=== PATIENT | female | born 1960 | race Two or more races ===

== ENCOUNTER 2017-12-23 05:52 | Day surgery (SDC) | payer BC ==
--- NOTE | 2017-12-22 17:12 | Pre-Procedure Note/Attestation ---
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 Attestation I attest that I discussed the nature of the procedure; its benefits; risks and complications; and alternatives (and the risks and benefits of such alternatives ), prior to the procedure, with the patient (or the patient's legal dental sales representative). I attest that, if there was a reasonable possibility of needing a blood transfusion, the patient (or the patient's legal dental sales representative) was given the [facility] standardized written summary, pursuant to the Renny Jessup Blood Safety Act ([place] Health and Safety Code # 1645, as amended). I attest that I re-evaluated the patient just prior to the surgery and that there has been no change in the patient's H&P, done by pts PMD-I will sign in the EMR. Cody Jones MD Dec 22, 2017 17:12
--- NOTE | 2017-12-22 17:13 | Brief Operative Note ---
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 Procedure: Excision of posterior left neck tumor Post-op Diagnosis: same as pre-op Surgeon: Cody Jones Twister Tender: none Additional Surgeons: none Anesthesiologist: Janee Anesthesia: MAC Specimen: yes Complications: none Condition: stable Fluids: D5LR Estimated Blood Loss: volume - 10 cc Drains: antonio Packing: none Implant(s) used?: No Cody Jones MD Dec 22, 2017 17:13
--- NOTE | 2017-12-22 17:16 | Discharge Instructions ---
Discharge Instructions Discharge Instructions Follow up with: 12/24/17 Diet: regular Resume Normal Activity?: No Activity: light activity Pneumonia Vaccine: pt refused vaccine Influenza Vaccine (Nov to Apr): pt refused vaccine Return to Work/School on: Jan 05, 2018 Special Instructions pt has printed post op instructions which were reviewed and given to her at pre op visit. For Surgical Patients Dressing Care: keep dry and clean May shower: No For Congestive Heart Failure Reminder Report to your physician any weight gain of 5 pounds or more in one week. Cody Jones MD Dec 22, 2017 17:16
[~2017-12-23] VITALS: Ht 167.6 cm; Wt 63.5 kg
[2017-12-23] VITALS (9 sets, daily range): BP systolic 116–137; BP diastolic 70–92
[~2017-12-23 05:52] MED LIST: Dexamethasone 4mg/ml vial IVP ONE
[2017-12-23] MEDS ORDERED: fentaNYL 100 mcg/2 mL IV ONE (06:30)
[2017-12-23] MEDS ORDERED: Midazolam 2mg/2ml Inj ONE (06:31)
[2017-12-23] MEDS ORDERED: Propofol 200mg/20ml IV ONE (06:33)
[2017-12-23] MEDS ORDERED: Ketorolac 30mg Inj ONE (06:33)
[2017-12-23] MEDS ORDERED: Lidocaine 1% MPF 10mg/ml 5ml ONE (06:33)
[2017-12-23] MEDS ORDERED: LEXAPRO10 MG ORAL (06:34)
[2017-12-23] MEDS ORDERED: MULTIVITAMINS1 EAC2 ORAL (06:34)
[2017-12-23] MEDS ORDERED: Bupivacaine w/Epi 0.25% 30ml Vial INJ ONE (06:37)
[2017-12-23] MEDS ORDERED: Bacitracin Oint 15gm Tube TOPIC ONE (06:37)
[2017-12-23] MEDS ORDERED: Lidocaine 1% 10mg/ml/Epi 0.005mg/ml 30ml vial INJ ONE (06:37)
[2017-12-23] MEDS ORDERED: Clindamycin 600mg 50 ML IV ONE ×2 (06:44→08:30)
[2017-12-23 06:51] LABS: ANION GAP 10 mmol/L (5-15); BLOOD UREA NITROGEN 11 mg/dL (7-18); CALCIUM 8.8 MG/DL (8.5-10.1); CARBON DIOXIDE 25 MMOL/L (21-32); CHLORIDE 104 MMOL/L (98-107); CREATININE 0.8 MG/DL (0.55-1.30); POTASSIUM 3.9 MMOL/L (3.5-5.1); SODIUM 139 MMOL/L (136-145)
[2017-12-23 06:55] LABS: BASOPHILS % (AUTO) 1.2 % (0.0-2.0); EOSINOPHILS % (AUTO) 0.3 % (0.0-3.0); HEMATOCRIT 38.1 % (37.0-47.0); HEMOGLOBIN 12.4 G/DL (12.0-16.0); LYMPHOCYTES % (AUTO) 22.7 % (20.0-45.0); MEAN CORPUSCULAR VOLUME 90 FL (80-99); MONOCYTES % (AUTO) 15.7 % (1.0-10.0); NEUTROPHILS % (AUTO) 60.2 % (45.0-75.0); PLATELET COUNT 109 K/UL (150-450); RED BLOOD COUNT 4.25 M/UL (4.20-5.40); RED CELL DISTRIBUTION WIDTH 14.9 % (11.6-14.8)
[2017-12-23] MEDS ORDERED: LR 1000ml 1,000 ML IVLG SCH (07:44)
--- NOTE | 2017-12-23 07:44 | Anethesia Preoperative Eval ---
Anesthesia Pre-op PMH/ROS General Date of Evaluation: Dec 23, 2017 Time of Evaluation: 06:55 Anesthesiologist: Tammy ASA Score: ASA 2 Mallampati Score Class I : Soft palate, uvula, fauces, pillars visible Class II: Soft palate, uvula, fauces visible Class III: Soft palate, base of uvula visible Class IV: Only hard plate visible Mallampati Classification: Class II Surgeon: Robert Diagnosis: L neck mass Surgical Procedure: Excision of L neck mass Anesthesia History: none Family History: no anesthesia problems Allergies: Coded Allergies: CEPHALOSPORINS (Verified Allergy, Intermediate, Rash, 12/22/17) Patient NPO?: Yes Past Medical History Cardiovascular: Denies: HTN, CAD, [place], valve dz, arrhythmia, other Pulmonary: Denies: asthma, COPD, CHELSY, other Gastrointestinal/Genitourinary: Reports: GERD; Denies: CRI, ESRD, other Neurologic/Psychiatric: Reports: depression/anxiety; Denies: dementia, CVA, TIA, other Endocrine: Denies: DM, hypothyroidism, steroids, other HEENT: Denies: cataract (L), cataract (R), glaucoma, [place] (L), [place] (R), other Hematology/Immune: Denies: anemia, DVT, bleeding disorder, other Musculoskeletal/Integumentary: Denies: OA, RA, DJD, DDD, edema, other PMH Narrative: as above PSxH Narrative: x2, cosmetics Anesthesia Pre-op Phys. Exam Physician Exam Last Vital Signs Date Time Temp Pulse Resp B/P (MAP) Pulse Ox O2 Delivery O2 Flow Rate FiO2 12/23/17 06:43 Room Air 12/23/17 06:39 97.7 75 18 130/70 95 Constitutional: NAD Neurologic: CN 2-12 intact Cardiovascular: RRR, no M/R/G Respiratory: CTA Gastrointestinal: S/NT/ND Airway Exam Mallampati Score: Class II MO: full Neck: flexible ROM: full Teeth: intact Dentures: no upper, no lower Anesthesia Pre-op A/P Labs Hematology Test 12/23/17 06:30 White Blood Count 4.0 K/UL (4.8-10.8) L Red Blood Count 4.25 M/UL (4.20-5.40) Hemoglobin 12.4 G/DL (12.0-16.0) Hematocrit 38.1 % (37.0-47.0) Mean Corpuscular Volume 90 FL (80-99) Mean Corpuscular Hemoglobin 29.2 PG (27.0-31.0) Mean Corpuscular Hemoglobin Concent 32.6 G/DL (32.0-36.0) Red Cell Distribution Width 14.9 % (11.6-14.8) H Platelet Count 109 K/UL (150-450) L Mean Platelet Volume 10.5 FL (6.5-10.1) H Neutrophils (%) (Auto) 60.2 % (45.0-75.0) Lymphocytes (%) (Auto) 22.7 % (20.0-45.0) Monocytes (%) (Auto) 15.7 % (1.0-10.0) H Eosinophils (%) (Auto) 0.3 % (0.0-3.0) Basophils (%) (Auto) 1.2 % (0.0-2.0) Chemistry Test 12/23/17 06:30 Sodium Level 139 MMOL/L (136-145) Potassium Level 3.9 MMOL/L (3.5-5.1) Chloride Level 104 MMOL/L (98-107) Carbon Dioxide Level 25 MMOL/L (21-32) Anion Gap 10 mmol/L (5-15) Blood Urea Nitrogen 11 mg/dL (7-18) Creatinine 0.8 MG/DL (0.55-1.30) Estimat Glomerular Filtration Rate > 60 mL/min (>60) Glucose Level 107 MG/DL (74-106) H Calcium Level 8.8 MG/DL (8.5-10.1) Risk Assessment & Plan Assessment: ASA 2 Plan: GA with LMA Status Change Before Surgery: No Pre-Antibiotics Drug: Clindamycin 600mg Given Within 1 Hr of Incision: Yes Time Given: 07:36 Olu Munoz MD Dec 23, 2017 07:43
[2017-12-23] MEDS ORDERED: Ketorolac 30mg Inj IV PRN (07:45)
[2017-12-23] MEDS ORDERED: DiphenhydrAMINE 50mg/ml Inj IVP PRN (07:45)
[2017-12-23] MEDS ORDERED: fentaNYL 100 mcg/2 mL IV PRN (07:45)
[2017-12-23] MEDS ORDERED: Midazolam 2mg/2ml Inj IVP PRN (07:45)
[2017-12-23] MEDS ORDERED: Metoclopramide 10mg/2ml Inj IVP PRN ×2 (07:45→09:45)
--- NOTE | 2017-12-23 08:23 | Immediate Post-Op Evaluation ---
Immediate Post-Op Evalulation Immediate Post-Op Evalulation Procedure: Excision of L neck mass Date of Evaluation: Dec 23, 2017 Time of Evaluation: 08:22 IV Fluids: 1000 Blood Products: none Estimated Blood Loss: min Urinary Output: none Blood Pressure Systolic: 134 Blood Pressure Diastolic: 78 Pulse Rate: 84 Respiratory Rate: 20 O2 Sat by Pulse Oximetry: 99 Temperature (Fahrenheit): 97.8 Pain Score (1-10): 1 Nausea: No Vomiting: No Complications none Patient Status: awake, patent, none Hydration Status: adequate Olu Munoz MD Dec 23, 2017 08:23
[2017-12-23] MEDS ORDERED: Norco 5mg/325mg tab ORAL PRN (09:45)
[2017-12-23] MEDS ORDERED: HYDROmorphone 1mg/ml Carpuject SUBQ PRN (09:45)
--- NOTE | 2017-12-23 14:35 | 48 Hour Post Anesthesia Eval ---
Post Anesthesia Evaluation Procedure: Excision of L neck mass Date of Evaluation: Dec 23, 2017 Time of Evaluation: 10:30 Blood Pressure Systolic: 116 0: 72 Pulse Rate: 68 Respiratory Rate: 22 Temperature (Fahrenheit): 98.6 O2 Sat by Pulse Oximetry: 98 Airway: patent Nausea: No Vomiting: No Pain Intensity: 2 Hydration Status: adequate Cardiopulmonary Status: stable Mental Status/LOC: patient returned to baseline Follow-up Care/Observations: n/a Post-Anesthesia Complications: none Follow-up care needed: ready to discharge Olu Munoz MD Dec 23, 2017 14:35
--- NOTE | 2017-12-23 18:00 | Operative Note - Dictated ---
DATE OF OPERATION: 12/23/2017 SURGEON: Cody Jones M.D. CLINICAL DATA ABSTRACTOR: None. ANESTHESIOLOGIST: ANESTHESIA: LMA general anesthesia in 10 mL of 1% lidocaine with 1:100,000 epinephrine and Marcaine 0.5% with 1:200,000 epinephrine. INDICATIONS: Numerous neck nodes that have been there for over 6 months showed up on MRI as well. The patient finally decided to have the biopsy. We chose the left posterolateral neck to be removed. PREOPERATIVE DIAGNOSIS: Left neck node. POSTOPERATIVE DIAGNOSIS: Left neck node. FINDINGS: Lymph nodes appeared to be inflammatory on frozen section but is not indicative of final diagnosis. PROCEDURE: Excision of deep left neck node with multilayer reconstruction. TECHNIQUE: The patient prepped and draped in usual manner. Time-out was performed. All agreed as to the procedure to be done. The proper equipment was in the room as well. After the patient was asleep, I injected with 1% lidocaine with epinephrine and Marcaine mixture. This allowed to sit for about 10 minutes. I then proceeded to make an incision in the existing fold in her neck with a 15-blade. This was about an inch and half long. I then dissected meticulously down to the mass which I could palpate. I pulled the side the sternocleidomastoid. This tissue was removed that include small lymph nodes as well as the fatty tissue. Area was irrigated and examined for needles, sponges, and bleeding of which there were none. I closed with a 3-0 Vicryl x3 and the skin with a 5-0 running horizontal mattress Prolene. I did place a Didi drain. Over this was placed antibiotic ointment, Telfa, fluffs, and tape. ESTIMATED BLOOD LOSS: 5 to 10 mL. COMPLICATIONS: None. DRAINS: One small [place] drain. The patient was awake and alert, and stable in the operating room prior to transfer to the recovery room. In the recovery room, we asked her to lift her arms above her head. She can lift both arms without any difficulty. I will see her in my office tomorrow to most probably remove the Didi drain. Cody Jones M.D. DR: Raquel JOB#: [id number] CC:
== END 2017-12-23 09:50 | disposition home or self-care (01) ==
LOC: EDBD 05:52 → SUR 05:52
DX: R59.0 Localized enlarged lymph nodes (principal); K21.9 Gastro-esophageal reflux disease without esophagitis; F32.9 Major depressive disorder, single episode, unspecified; F41.9 Anxiety disorder, unspecified; Z88.1 Allergy status to other antibiotic agents; Z88.0 Allergy status to penicillin
CPT/HCPCS: 36415; 38510; 80048; 85025; 87070; 87075; 87181; 87205; J0744; J1885; J2250; J2405; J2704; J3010; 94003; 94150; S0077